=== PATIENT | male | born 2000 | race Caucasian/White ===

== ENCOUNTER 2019-07-18 01:34 | Emergency (ER) | payer BC, SELFPAY ==
[2019-07-18 01:35] VITALS: BP 146/87; PULSE 80; RESP 16; TEMP 36.9; O2SAT 100; BMI 24.5
--- NOTE | 2019-07-18 02:09 | ED.VISSUMM ---
- ER Visit Summary Date of Service: 07/18/19 Chief Complaint: Left eye pain History of Present Illness: The patient is a 18 M with left eye pain today. The patient had his haircut. His face and left thigh was brushed with a towel after the haircut and he was concerned he was exposed to a chemical or foreign body. He is having pain and some blurry vision in the left eye. He does wear contact lenses. No fever or systemic symptoms. No history of this in the past. Physical Examination: Visual acuity is OD 20/25, OS 20/50, OU 20/30. Extraocular structures are normal. Cranial nerves and extraocular motion normal. There appears to be a white spot less than 1 mm over his left cornea at 10:00. Pupils normal. Test Results: See below Emergency Department Course and Treatment: Tetracaine and fluorescein applied. No uptake noted. Slit lamp exam was performed and shows a corneal ulceration. No dendrites or other abnormal findings. Eyelids were everted. No foreign bodies. No rust rings. Exam otherwise unremarkable. I contacted our hospital pharmacy. We only had Cipro ophthalmic drops as our only fluoroquinolone option. He was placed on these, 2 drops to the left eye every 2 hours while awake. He was referred to ophthalmology for follow-up tomorrow. Dr. Faye was on-call, but the patient knows Dr. Phipps, and they were given both numbers. Discontinue contact lenses. Return for any new or worsening issues. Treatment Plan: As above Disposition: Discharge Impression: Left eye corneal ulceration This note was generated with [employer] dictation software. It may contain incorrect words, spelling, and punctuation that were not noted in review of the chart prior to signing ED Disposition - Plan for ED Patient: Referrals: Erick Gallardo MD [Primary Care Provider] -
--- NOTE | 2019-07-18 02:12 | ED.DEP ---
ED Disposition - Plan for ED Patient: Instructions: Corneal Ulcer Referrals: Jac Perry MD [STAFF PHYSICIAN] - Yadira Faye MD [STAFF PHYSICIAN] - Additional Instructions: Use Cipro antibiotics 2 drops to left eye every 2 hours while awake. Follow up with ophthalmology in the morning of Jul 18.
[2019-07-18] MEDS: Ciprofloxacin 0.3% 2.5ml Bottle 2 DRP LEFT EYE (02:34)
[2019-07-18] MEDS: Tetracaine 0.5% Ophthalmic Bottle 1 DRP RIGHT EYE (02:34)
[2019-07-18 02:35] VITALS: PULSE 73; RESP 20; O2SAT 98
--- NOTE | 2019-07-18 02:36 | ED.RN ---
THIS NURSE REVIEWED D/C INSTRUCTIONS WITH PT AND MOTHER. BOTH VERBALIZED UNDERSTANDING OF INSTRUCTIONS. PT DENIES FURTHER NEEDS OR QUESTIONS AT THIS TIME.
== END 2019-07-18 02:37 | disposition home or self-care (01) ==
LOC: ED 02:01
PROVIDERS: Emergency Provider Emergency Medicine; PCP Family Medicine
DX: H16.002 Unspecified corneal ulcer, left eye (principal)
CPT/HCPCS: 99283

== ENCOUNTER → 2021-05-12 16:22 | Outpatient (CLI) | payer BC, SELFPAY | PROVIDERS: PCP Family Medicine; Referring Provider Student in an Organized Health Care Education/Training Program; Visit Provider Student in an Organized Health Care Education/Training Program | DX: Z11.59 Encounter for screening for other viral diseases (principal) | CPT/HCPCS: 87635; U0005; U0003 ==

== ENCOUNTER 2021-08-23 16:32 | Outpatient (CLI) | payer BC, SELFPAY ==
[2021-08-23 18:31] LABS: Cholesterol 165 mg/dL (200); Creatinine, Serum 0.84 mg/dL (0.70-1.30); EST Glomerular Filtration Rate 120 mL/min (>60); Est Glom Filt Rate - Afr Amer 145 mL/min (>60); High Density Lipoprotein 40 mg/dL
== END 2021-08-23 23:59 | disposition home or self-care (01) ==
LOC: MFPLAB 16:35
PROVIDERS: PCP Family Medicine; Referring Provider Family Medicine; Visit Provider Family Medicine
DX: Z00.00 Encounter for general adult medical examination without abnormal findings (principal)
CPT/HCPCS: 36415; 82465; 82565; 83718

== ENCOUNTER → 2022-03-31 | Outpatient (CLI) | payer BC, SELFPAY ==
[2022-04-05 16:45] LABS: Arsenic 7245 2 ug/L (0-9); Lead, Blood < 1.0 ug/dL (0.0-3.4); Mercury, Blood 85324 < 1.0 ug/L (0.0-14.9)
== END | disposition home or self-care (01) ==
PROVIDERS: PCP Family Medicine; Referring Provider Family Medicine; Visit Provider Family Medicine
DX: R52 Pain, unspecified (principal); L90.5 Scar conditions and fibrosis of skin
CPT/HCPCS: 36415; 82175; 83655; 83825

== ENCOUNTER → 2023-01-12 | Outpatient (CLI) | payer BC, SELFPAY ==
--- NOTE | 2023-01-12 09:28 | RAD_ITS ---
STUDY: X-RAY - LEFT HAND, ATTENTION SECOND FINGER REASON FOR EXAM: Male, 22 years old. Pain. TECHNIQUE: 3 view(s) of the finger were obtained. COMPARISON: None. FINDINGS: Normal metacarpal head. Normal metacarpophalangeal joint. Normal proximal phalanx. Normal middle phalanx. Normal distal phalanx. Normal proximal interphalangeal joint. Normal distal interphalangeal joint. Normal soft tissues. RAD/Finger(s) Min 2 Views IMPRESSION: Normal x-ray examination of the finger. Electronically Signed: Jac Amador MD at 11:49 EDT ,
== END | disposition home or self-care (01) ==
LOC: MTRAD 09:27
PROVIDERS: PCP Family Medicine; Referring Provider Family Medicine; Visit Provider Family Medicine
DX: R29.898 Other symptoms and signs involving the musculoskeletal system (principal)
CPT/HCPCS: 73140

== ENCOUNTER → 2024-03-23 01:59 | Outpatient (REF) | payer SELFPAY | END | disposition home or self-care (01) | LOC: EDREF 01:59 | PROVIDERS: PCP Family Medicine | DX: Z00.00 Encounter for general adult medical examination without abnormal findings (principal) ==